=== PATIENT | male | born 1945 | race Hispanic/Latino ===

== ENCOUNTER 2023-10-23 08:15 | Inpatient (IN) | payer MEDICARE ==
[~2023-10-23] VITALS: Ht 160 cm; Wt 65.8 kg
[2023-10-23 09:14] VITALS: BP 173/86; PULSE 86; RESP 17
[2023-10-23 09:18] LABS: BASOPHILS # (AUTO) 0.01 K/uL (0.00-0.20); BASOPHILS % (AUTO) 0.1 % (0.0-5.0); EOSINOPHILS # (AUTO) 0.17 K/uL (0.00-0.70); EOSINOPHILS % (AUTO) 1.9 % (0.0-8.0); HEMATOCRIT 46.2 % (42-54); IMMATURE GRANULOCYTE ABSOLUTE 0.06 K/uL (0-1); LYMPHOCYTES # (AUTO) 1.3 K/uL (1.0-4.8); LYMPHOCYTES % (AUTO) 14.7 % (21.0-51.0); MEAN CORPUSCULAR HEMOGLOBIN 24.8 pg (27.0-33.0); MEAN CORPUSCULAR HGB CONC 31.2 g/dL (32.0-36.0); MEAN CORPUSCULAR VOLUME 79.5 fL (79-99); MONOCYTES # (AUTO) 0.6 K/uL (0.1-1.0); MONOCYTES % (AUTO) 6.8 % (3.0-13.0); NEUTROPHILS # (AUTO) 6.6 K/uL (1.8-7.7); NEUTROPHILS % (AUTO) 75.8 % (40.0-77.0); PLATELET COUNT (AUTO) 207 K/uL (130-400); RED BLOOD CELL COUNT(AUTO) 5.81 MIL/uL (4.50-6.20); RED CELL DISTRIBUTION WIDTH 16.5 % (11.0-15.5); WHITE BLOOD COUNT (AUTO) 8.8 K/uL (4.8-10.8)
[2023-10-23 09:31] LABS: CREATININE 1.1 mg/dL (0.5-1.5); INR 0.94 (0.85-1.15); POTASSIUM 4.6 mmol/L (3.5-5.1)
[2023-10-23 09:32] LABS: PARTIAL THROMBOPLASTIN TIME 29.8 SEC (26.3-35.5)
[2023-10-23 09:53] LABS: B-TYPE NATRIURETIC PEPTIDE 30 pg/mL (0-100)
[2023-10-23] MEDS ORDERED: LINA5TAB PO (13:53)
[2023-10-23] MEDS ORDERED: CLOP-31 PO (13:53)
[2023-10-23] MEDS ORDERED: INSLAN SQ (13:53)
[2023-10-23] MEDS ORDERED: [UNRECOGNIZED DRUG - OTHER] PO (13:53)
[2023-10-23] MEDS ORDERED: VITA1CAP85 PO (13:53)
[2023-10-23] MEDS ORDERED: TELM80TA10 PO (13:53)
[2023-10-23] MEDS ORDERED: ROSU40TA21 PO (13:53)
[2023-10-23] MEDS ORDERED: TACR0.5C7 PO (13:53)
[2023-10-23] MEDS ORDERED: EMPA10TA PO (13:53)
[2023-10-23] MEDS ORDERED: AEC81 PO (13:53)
[2023-10-23] MEDS ORDERED: AMLO-258 PO (13:53)
[2023-10-23] MEDS ORDERED: METO-408 PO (13:53)
[2023-10-23] MEDS ORDERED: LEVO25CA4 PO (13:53)
[2023-10-24] VITALS (61 sets, daily range): BP systolic 93–152; BP diastolic 40–76; PULSE 54–82; RESP 10–147; TEMP 98.5–98.8; O2SAT 93–99
[2023-10-24] MEDS ORDERED: 0.9%NACL 1000ML 1,000 ML IV ONE (07:41)
[2023-10-24] MEDS ORDERED: LIDOCAINE HCL 1% 20 ML VIAL ONE (09:25)
[2023-10-24] MEDS ORDERED: PROPOFOL 10 MG/ML 20ML VIAL IV ONE (09:26)
[2023-10-24] MEDS ORDERED: FENTANYL CITRATE PF 50 MCG/1 ML 2ML VIAL ONE (09:26)
[2023-10-24] MEDS ORDERED: ROCURONIUM BROMIDE 10MG/1ML 5ML VL ONE (09:26)
[2023-10-24] MEDS ORDERED: IODIXANOL 320 MG/ML 100 ML VIAL ONE (09:30)
[2023-10-24] MEDS ORDERED: CEFAZOLIN SODIUM 1 GM VIAL ONE (09:45)
[2023-10-24] MEDS ORDERED: BUPIVACAINE/PF 0.25% 30ML VIAL IJ ONE (09:46)
[2023-10-24] MEDS ORDERED: ATROPINE 1MG SYG IVP ONE (10:00)
[2023-10-24] MEDS ORDERED: HEPARIN 10,000 UNIT/10ML (1,000 UNIT/ML) VIAL ONE (10:04)
[2023-10-24] MEDS ORDERED: PROTAMINE SULFATE 10 MG/ML 25ML VIAL IV ONE (11:20)
[2023-10-24] MEDS ORDERED: GLYCOPYRROLATE 1 MG/5 ML SYRINGE ONE (11:32)
[2023-10-24] MEDS ORDERED: NEOSTIGMINE 5MG/5ML SYR IV ONE (11:34)
[2023-10-24] MEDS ORDERED: PHARMACY COMMUNICATION MISC SCH ×2 (12:00)
[2023-10-24] MEDS ORDERED: 0.9%NACL 10ML VIAL IV SCH (12:00)
[2023-10-24] MEDS ORDERED: ATROPINE 1MG SYG IVP PRN (12:30)
[2023-10-24] MEDS ORDERED: NOREPINEPHRIN 4MG/NS 250ML 250 ML IV PRN (12:30)
[2023-10-24] MEDS ORDERED: GLUCAGON 1MG KIT 1 MG ML IM PRN (13:30)
[2023-10-24] MEDS ORDERED: ONDANSETRON 4MG INJ IVP PRN (13:30)
[2023-10-24] MEDS ORDERED: ACETAMINOPHEN 500 MG TABLET PO PRN (13:30)
[2023-10-24] MEDS ORDERED: DEXTROSE 50%-WATER 50 ML DISP.SYRIN IV PRN (13:30)
[2023-10-24] MEDS: INSULIN HUMULIN R 100 UNIT/ML 3ML SQ SCH ×2 (16:20→21:00)
[2023-10-24] MEDS: MYCOPHENOLATE 500 MG PO SCH (21:00)
[2023-10-24] MEDS ORDERED: INSULIN GLARGINE 100 UNITS/ML 10 ML VIAL SQ SCH (21:00)
[2023-10-24] MEDS ORDERED: Telmisartan 80 MG PO SCH (21:00)
[2023-10-25] VITALS (41 sets, daily range): BP systolic 89–133; BP diastolic 35–90; PULSE 56–82; RESP 13–29; TEMP 98.4; O2SAT 94–95
[2023-10-25 04:39] LABS: BASOPHILS # (AUTO) 0.02 K/uL (0.00-0.20); BASOPHILS % (AUTO) 0.2 % (0.0-5.0); EOSINOPHILS # (AUTO) 0.03 K/uL (0.00-0.70); EOSINOPHILS % (AUTO) 0.2 % (0.0-8.0); HEMATOCRIT 39.3 % (42-54); IMMATURE GRANULOCYTE ABSOLUTE 0.05 K/uL (0-1); LYMPHOCYTES # (AUTO) 1.3 K/uL (1.0-4.8); LYMPHOCYTES % (AUTO) 10.7 % (21.0-51.0); MEAN CORPUSCULAR HEMOGLOBIN 24.8 pg (27.0-33.0); MONOCYTES # (AUTO) 0.7 K/uL (0.1-1.0); MONOCYTES % (AUTO) 5.5 % (3.0-13.0); NEUTROPHILS # (AUTO) 10.3 K/uL (1.8-7.7); PLATELET COUNT (AUTO) 182 K/uL (130-400); RED BLOOD CELL COUNT(AUTO) 4.91 MIL/uL (4.50-6.20); RED CELL DISTRIBUTION WIDTH 16.7 % (11.0-15.5); WHITE BLOOD COUNT (AUTO) 12.4 K/uL (4.8-10.8)
[2023-10-25 05:06] LABS: HEMOGLOBIN A1C 8.7 % (4.0-6.0)
[2023-10-25 05:07] LABS: ALBUMIN 2.9 g/dL (3.5-5.0); BILIRUBIN,TOTAL 0.4 mg/dL (0.2-1.0); CREATININE 1.1 mg/dL (0.5-1.5); MAGNESIUM 1.9 mg/dL (1.80-2.40); TOTAL PROTEIN, SERUM 6.6 g/dL (6.0-8.3)
[2023-10-25] MEDS ORDERED: MAGNESIUM 2GM PREMIX 50ML 50 ML IV PRN (05:47)
[2023-10-25] MEDS ORDERED: LEVOTHYROXINE 25 MCG TABLET PO SCH (06:30)
[2023-10-25] MEDS: INSULIN HUMULIN R 100 UNIT/ML 3ML SQ SCH (06:32)
[2023-10-25] MEDS ORDERED: NON-FORMULARY MEDICATION 1 EACH (Levothyroxine Sodium (Levothyroxine) 25 MCG) PO SCH (07:30)
[2023-10-25] MEDS: MYCOPHENOLATE 500 MG PO SCH (08:43)
[2023-10-25] MEDS ORDERED: Rosuvastatin Calcium 40 MG PO SCH (09:00)
[2023-10-25] MEDS ORDERED: AMLODIPINE 5 MG TAB PO SCH (09:00)
[2023-10-25] MEDS ORDERED: VITAMIN B COMPLEX 1 CAPSULE PO SCH (09:00)
[2023-10-25] MEDS ORDERED: CLOPIDOGREL 75MG TAB PO SCH (09:00)
[2023-10-25] MEDS ORDERED: ASPIRIN 81 MG EC TAB PO SCH (09:00)
[2023-10-25] MEDS ORDERED: TACROLIMUS 0.5 MG CAPSULE PO SCH (09:00)
[2023-10-25] MEDS ORDERED: NON-FORMULARY MEDICATION 1 EACH (Amlodipine Besylate 10 MG) PO SCH (09:00)
[2023-10-25] MEDS ORDERED: METOPROLOL SUCCINATE 25 MG TAB.SR.24H PO SCH (09:00)
[2023-10-25] MEDS ORDERED: LINAGLIPTIN 5 MG TABLET PO SCH (09:00)
[2023-10-25] MEDS ORDERED: EMPAGLIFLOZIN 10MG TABLET PO SCH (09:00)
[2023-10-25] MEDS ORDERED: INSULIN GLARGINE 100 UNITS/ML 10 ML VIAL SQ SCH (22:30)
== END 2023-10-25 11:46 | disposition home or self-care (01) | DRG 35 ==
LOC: EDSTATUS 14:00 → DAHIP 10-24 07:17 → 2CV 10-24 11:27
PROVIDERS: ADMIT Hospitalist; ATTEND Hospitalist
PROC: 3E023BZ Introduction of Anesthetic Agent into Muscle, Percutaneous Approach (ICD-10-PCS; 2023-10-24)
PROC: B54MZZA Ultrasonography of Right Upper Extremity Veins, Guidance (ICD-10-PCS; 2023-10-24)
PROC: B3131ZZ Fluoroscopy of Right Common Carotid Artery using Low Osmolar Contrast (ICD-10-PCS; 2023-10-24)
PROC: X2AH336 Cerebral Embolic Filtration, Extracorporeal Flow Reversal Circuit from Right Common Carotid Artery, Percutaneous Approach, New Technology Group 6 (ICD-10-PCS; 2023-10-24)
PROC: 037K3DZ Dilation of Right Internal Carotid Artery with Intraluminal Device, Percutaneous Approach (ICD-10-PCS; principal; 2023-10-24 09:30)
DX: I65.21 Occlusion and stenosis of right carotid artery (principal); Z94.0 Kidney transplant status; R09.89 Other specified symptoms and signs involving the circulatory and respiratory systems; I10 Essential (primary) hypertension; E66.09 Other obesity due to excess calories; E03.9 Hypothyroidism, unspecified; E11.9 Type 2 diabetes mellitus without complications; E78.5 Hyperlipidemia, unspecified; I25.10 Atherosclerotic heart disease of native coronary artery without angina pectoris; Z79.4 Long term (current) use of insulin; Z79.899 Other long term (current) drug therapy; Z98.61 Coronary angioplasty status; Z68.25 Body mass index [BMI] 25.0-25.9, adult
CPT/HCPCS: 36415; 37215; 71045; 80048; 80053; 82948; 83036; 83735; 83880; 85025; 85610; 85730; 86850; 86900; 86901; 86923; 93005; C1769; G0378; J0461; J0690; J1644; J2405; J2704; J2710; J2720; J3010; J3475; J3490; J7030; J7507; Q9967; A4215; A4216; A4221; A4222; A4223; A4649; A4663; A6219; C1725; C1760; C1876; C1884; C1894; G0168; J0665